=== PATIENT | male | born 1955 | race American Indian/Alaskan Native ===

== ENCOUNTER 2017-07-06 07:11 | Inpatient (IN) | payer BC, OTHER ==
[2017-07-06 08:21] LABS: Basophils % (Auto) 0.8 % (0.0-1.8); Hemoglobin 14.8 gm/dl (11.8-15.2); Mean Corpuscular HGB Conc 34 % (32-34); Mean Corpuscular Hemoglobin 30 pg (28-32); Mean Corpuscular Volume 89 fl (84-94); Platelet Count 109 K/mm3 (140-440); Red Blood Count 4.96 M/mm3 (3.65-5.03); Red Cell Distribution Width 13.1 % (13.2-15.2); White Blood Count 6.1 K/mm3 (4.5-11.0)
[2017-07-06 08:31] LABS: Bilirubin,Urine NEG (Negative); Blood,Urine NEG (Negative); Ketones,Urine NEG (Negative); Leukocyte Esterase,Urine NEG (Negative); Nitrite,Urine NEG (Negative); Protein,Urine <15 mg/dL mg/dL (Negative); RBC,Urine < 1.0 /HPF (0.0-6.0); Urobilinogen,Urine < 2.0 mg/dL (<2.0)
[2017-07-06 08:38] LABS: WBC,Urine < 1.0 /HPF (0.0-6.0)
[2017-07-06 08:42] LABS: Anion Gap 19 mmol/L; BUN/Creatinine Ratio 8; Blood Urea Nitrogen 6 mg/dL (9-20); Calcium 9.1 mg/dL (8.4-10.2); Carbon Dioxide 27 mmol/L (22-30); Glucose 88 mg/dL (75-100); Potassium 4.6 mmol/L (3.6-5.0); Sodium 142 mmol/L (137-145)
--- NOTE | 2017-07-06 10:29 | Emergency Department Report ---
ED Chest Pain HPI - General Chief Complaint: Chest Pain Stated Complaint: CHEST PAIN/NUMBNESS LEFT ARM Time Seen by Provider: 07/06/17 10:27 Source: patient Mode of arrival: Ambulatory Limitations: No Limitations - History of Present Illness Initial Comments: The patient states that at approximately 5 in the morning he began to experience heaviness in his left chest. This was associated with numbness in his left arm. He associated this with taking probiotics and potassium which he took about an hour prior hours. He stated he had some cramps in his legs which were common for him. He is not complaining of any leg pain now. He denies shortness of breath. He's had no recent traveling. There is been no leg swelling. He states he has not been coughing suffering from nausea or vomiting. He had some sweating earlier this morning. Patient is a current smoker. He states that both his parents had "coronaries". He's had no prior workup for chest pain. MD Complaint: chest pain -: hour(s) Onset: during rest Pain Location: left chest Pain Radiation: LUE (left arm numbness) Severity: moderate Quality: heaviness Consistency: now resolved (minimally residual) Improves With: nothing Worsens With: nothing re: other (some sweating). denies: nausea, vomting, dyspnea, sense of impending doom Other Symptoms: denies: cough, fever, syncope Treatments Prior to Arrival: none Aspirin use within the Past 7 Days: (0) No - Related Data Home Medications Medication Instructions Recorded Confirmed Last Taken Krill Oil 500 mg PO DAILY 02/06/14 02/16/14 02/02/14 Lactobacillus Acidophilus 1 each PO DAILY 02/06/14 02/16/14 02/15/14 [Probiotic] Multivitamin [Multi Vitamin Daily] 1 each PO DAILY 02/06/14 02/16/14 02/14/14 Previous Rx's Medication Instructions Recorded Last Taken Type oxyCODONE /ACETAMINOPHEN [Percocet 1 tab PO Q6HR PRN #30 tablet 02/16/14 Unknown Rx 5/325] Allergies Allergy/AdvReac Type Severity Reaction Status Date / Time No Known Allergies Allergy Unverified 02/06/14 15:49 Heart Score - HEART Score History: Slightly suspicious EKG: Normal Age: 45-65 Risk factors: > 3 risk factors or hx of atherosclerotic disease Troponin: < normal limit HEART Score: 3 ED Review of Systems ROS: Stated complaint: CHEST PAIN/NUMBNESS LEFT ARM Other details as noted in HPI Constitutional: denies: chills, fever Eyes: denies: eye pain, eye discharge, vision change ENT: denies: ear pain, throat pain Respiratory: denies: cough, shortness of breath, wheezing Cardiovascular: chest pain. denies: palpitations Endocrine: no symptoms reported Gastrointestinal: denies: abdominal pain, nausea, diarrhea Genitourinary: denies: urgency, dysuria Musculoskeletal: denies: back pain, joint swelling, arthralgia Skin: denies: rash, lesions Neurological: denies: headache, weakness, paresthesias Psychiatric: denies: anxiety, depression Hematological/Lymphatic: denies: easy bleeding, easy bruising ED Past Medical Hx - Past Medical History Hx Hypertension: No Hx Heart Attack/AMI: No Hx Liver Disease: No Hx Renal Disease: No Hx Seizures: No Hx Asthma: No - Surgical History Past Surgical History?: No - Social History Smoking Status: Former Smoker Substance Use Type: None - Medications Home Medications: Home Medications Medication Instructions Recorded Confirmed Last Taken Type Krill Oil 500 mg PO DAILY 02/06/14 02/16/14 02/02/14 History Lactobacillus Acidophilus 1 each PO DAILY 02/06/14 02/16/14 02/15/14 History [Probiotic] Multivitamin [Multi Vitamin Daily] 1 each PO DAILY 02/06/14 02/16/14 02/14/14 History oxyCODONE /ACETAMINOPHEN [Percocet 1 tab PO Q6HR PRN #30 tablet 02/16/14 Unknown Rx 5/325] ED Physical Exam - General Limitations: No Limitations General appearance: alert, in no apparent distress - Head Head exam: Present: atraumatic, normocephalic - Eye Eye exam: Present: normal appearance. Absent: scleral icterus - ENT ENT exam: Present: mucous membranes moist - Neck Neck exam: Present: normal inspection - Respiratory Respiratory exam: Present: normal lung sounds bilaterally. Absent: respiratory distress - Cardiovascular Cardiovascular Exam: Present: regular rate, normal rhythm. Absent: systolic murmur, diastolic murmur, rubs, gallop - GI/Abdominal GI/Abdominal exam: Present: soft, normal bowel sounds. Absent: distended, tenderness, guarding, rebound, rigid - Rectal Rectal exam: Present: deferred - Extremities Exam Extremities exam: Present: normal inspection - Back Exam Back exam: Present: normal inspection - Neurological Exam Neurological exam: Present: alert, oriented X3, CN II-XII intact. Absent: motor sensory deficit - Psychiatric Psychiatric exam: Present: normal affect, normal mood - Skin Skin exam: Present: warm, dry, intact, normal color. Absent: rash ED Course Vital Signs 07/06/17 07/06/17 07/06/17 07:27 08:45 09:00 Temperature 98.4 F Pulse Rate 71 58 L 58 L Respiratory 20 15 11 L Rate Blood Pressure 156/95 146/89 O2 Sat by Pulse 100 100 Oximetry 07/06/17 10:03 Temperature Pulse Rate Respiratory Rate Blood Pressure 141/89 O2 Sat by Pulse 100 Oximetry - Reevaluation(s) Reevaluation #1: Patient was educated as to the need to complete his chest pain workup to exclude cardiac causes of his chest pain. He was initially reticent. Finally he agreed that he would stay to be admitted. His care was transferred to hospitalist on-call. 07/06/17 12:51 TANIA score - Tania Score Age > 65: (0) No Aspirin use within the Past 7 Days: (0) No 3 or more CAD Risk Factors: (1) Yes 2 or more Angina events in past 24 hrs: (0) No Known CAD with more than 50% Stenosis: (0) No Elevated Cardiac Markers: (0) No ST Deviation Greater than 0.5mm: (0) No TANIA Score: 1 ED Medical Decision Making - Lab Data Result diagrams: 07/06/17 08:09 07/06/17 08:05 Laboratory Results - last 24 hr 07/06/17 07/06/17 07/06/17 07:47 08:05 08:09 WBC 6.1 RBC 4.96 Hgb 14.8 Hct 44.0 MCV 89 MCH 30 MCHC 34 RDW 13.1 L Plt Count 109 L Lymph % (Auto) 34.3 [place] % (Auto) 11.4 H Eos % (Auto) 1.0 Baso % (Auto) 0.8 Lymph # 2.1 [place] # 0.7 Eos # 0.1 Baso # 0.0 Seg Neutrophils % 52.5 Seg Neutrophils # 3.2 Sodium 142 Potassium 4.6 Chloride 101.0 Carbon Dioxide 27 Anion Gap 19 BUN 6 L Creatinine 0.8 Estimated GFR > 60 BUN/Creatinine Ratio 8 Glucose 88 Calcium 9.1 Troponin T < 0.010 Urine Color Straw Urine Turbidity Clear Urine pH 7.0 Ur Specific [place] 1.001 L Urine Protein <15 mg/dl Urine Glucose (UA) Neg Urine Ketones Neg Urine Blood Neg Urine Nitrite Neg Urine Bilirubin Neg Urine Urobilinogen < 2.0 Ur Leukocyte Esterase Neg Urine WBC (Auto) < 1.0 Urine RBC (Auto) < 1.0 - EKG Data -: EKG Interpreted by Me EKG shows normal: sinus rhythm, axis, intervals, QRS complexes, ST-T waves Rate: normal - EKG Data When compared to previous EKG there are: no significant change Right bundle-branch block 07/06/17 10:29 - Radiology Data interpreted by me: Chest x-ray has some chronic changes but nothing acute Critical care attestation.: If time is entered above; I have spent that time in minutes in the direct care of this critically ill patient, excluding procedure time. ED Disposition Clinical Impression: Chest pain Qualifiers: Chest pain type: unspecified Qualified Code(s): R07.9 - Chest pain, unspecified Disposition: 09 OP ADMIT IP TO THIS HOSP Is pt being admited?: Yes Does the pt Need Aspirin: Yes Condition: Stable Instructions: Chest Pain (ED) Referrals: PRIMARY CARE, [Primary Care Provider] - 3-5 Days Time of Disposition: 13:14
[2017-07-06] MEDS ORDERED: SODIUM CHLORIDE FLUSH SYRINGE 10 ML IV PRN (13:10)
--- NOTE | 2017-07-06 13:17 | History and Physical Report ---
History of Present Illness Date of examination: 07/06/17 Chief complaint: Chest heaviness History of present illness: 61 year old -Thai male with no significant past medical history of present is emergency Department with complaints of mid chest heaviness that started this morning. He says heaviness is 7 out of 10, associated with palpitation and left arm numbness. Patient didn't have any similar complaints before. Patient said both his father and mother has history of heart attack. She didn't have any cardiac workup before. REVIEW OF SYSTEMS: GENERAL: no weight change, no fatigue, no fever HEAD: no head ache EYES: no blurry vision, no acute visual loss EARS: no hearing loss, no discharge, no earache NOSE: no stuffiness, no sneezing, no discharge MOUTH, THROAT AND NECK: no bleeding gums, no sore throat, no swollen neck CARDIAC: no palpitations, no dyspnea on exertion, no orthopnea, no PND, no edema , no chest pain RESPIRATORY: no shortness of breath, no wheeze, no cough, no sputum, no hemoptysis, no asthma GI: no decreased appetite, no nausea, no vomiting, no dysphagia, no diarrhea, no constipation, no abdominal pain URINARY: no change in frequency, no urgency, no polyuria, no hematuria, no incontinence MUSCULOSKELETAL: no muscle weakness, no pain, no joint stiffness NEUROLOGIC: no loss of sensation/numbness, no tingling, no tremors, no weakness/ paralysis HEMATOLOGIC: no anemia, no easy bruising SKIN: no rashes ENDOCRINE: no heat/cold intolerance, no polyuria, no polydipsia, no thyroid problems, no diabetes PSYCHIATRIC: no anxiety, no depression, no suicidal ideations Past History Past Medical History: No medical history Past Surgical History: hernia repair Social history: full code. denies: smoking, alcohol abuse, prescription drug abuse, IV drug use Family history: CAD (both mother and father), cancer (Brother and sister) Medications and Allergies Allergies Allergy/AdvReac Type Severity Reaction Status Date / Time No Known Allergies Allergy Unverified 02/06/14 15:49 Home Medications Medication Instructions Recorded Confirmed Last Taken Type Krill Oil 500 mg PO DAILY 02/06/14 02/16/14 02/02/14 History Lactobacillus Acidophilus 1 each PO DAILY 02/06/14 02/16/14 02/15/14 History [Probiotic] Multivitamin [Multi Vitamin Daily] 1 each PO DAILY 02/06/14 02/16/14 02/14/14 History oxyCODONE /ACETAMINOPHEN [Percocet 1 tab PO Q6HR PRN #30 tablet 02/16/14 Unknown Rx 5/325] Active Meds: Active Medications Aspirin (Baby Aspirin) 81 mg PO QDAY LARY Atorvastatin Calcium (Lipitor) 40 mg PO QHS LARY Enoxaparin Sodium (Lovenox) 40 mg SUB-Q QDAY LARY Sodium Chloride (Sodium Chloride Flush Syringe 10 Ml) 10 ml IV PRN PRN PRN Reason: LINE FLUSH Exam - Physical Exam Narrative exam: Not in cardiopulmonary distress. The patient appeared well nourished and normally developed. Vital signs as documented. Head exam is unremarkable. No scleral icterus . Neck is without jugular venous distension, thyromegaly, or carotid bruits. Lungs are clear to auscultation. Cardiac exam reveals regular rate and Rhythm. First and second heart sounds normal. No murmurs, rubs or gallops. Abdominal exam reveals normal bowel sounds, no masses, no organomegaly and no aortic enlargement. Extremities are nonedematous and both femoral and pedal pulses are normal. [employer] POWERPLANT [employer]IC: Alert and oriented 3. No focal weakness. - Constitutional Vitals: Temp Pulse Resp BP Pulse Ox 98.4 F 58 L 11 L 141/89 100 07/06/17 07:27 07/06/17 09:00 07/06/17 09:00 07/06/17 10:03 07/06/17 10:03 Results - Labs CBC & Chem 7: 07/06/17 08:09 07/06/17 08:05 Labs: Laboratory Last Values WBC 6.1 K/mm3 (4.5-11.0) 07/06/17 08:09 RBC 4.96 M/mm3 (3.65-5.03) 07/06/17 08:09 Hgb 14.8 gm/dl (11.8-15.2) 07/06/17 08:09 Hct 44.0 % (35.5-45.6) 07/06/17 08:09 MCV 89 fl (84-94) 07/06/17 08:09 MCH 30 pg (28-32) 07/06/17 08:09 MCHC 34 % (32-34) 07/06/17 08:09 RDW 13.1 % (13.2-15.2) L 07/06/17 08:09 Plt Count 109 K/mm3 (140-440) L 07/06/17 08:09 Lymph % (Auto) 34.3 % (13.4-35.0) 07/06/17 08:09 [place] % (Auto) 11.4 % (0.0-7.3) H 07/06/17 08:09 Eos % (Auto) 1.0 % (0.0-4.3) 07/06/17 08:09 Baso % (Auto) 0.8 % (0.0-1.8) 07/06/17 08:09 Lymph # 2.1 K/mm3 (1.2-5.4) 07/06/17 08:09 [place] # 0.7 K/mm3 (0.0-0.8) 07/06/17 08:09 Eos # 0.1 K/mm3 (0.0-0.4) 07/06/17 08:09 Baso # 0.0 K/mm3 (0.0-0.1) 07/06/17 08:09 Seg Neutrophils % 52.5 % (40.0-70.0) 07/06/17 08:09 Seg Neutrophils # 3.2 K/mm3 (1.8-7.7) 07/06/17 08:09 Sodium 142 mmol/L (137-145) 07/06/17 08:05 Potassium 4.6 mmol/L (3.6-5.0) 07/06/17 08:05 Chloride 101.0 mmol/L (98-107) 07/06/17 08:05 Carbon Dioxide 27 mmol/L (22-30) 07/06/17 08:05 Anion Gap 19 mmol/L 07/06/17 08:05 BUN 6 mg/dL (9-20) L 07/06/17 08:05 Creatinine 0.8 mg/dL (0.8-1.5) 07/06/17 08:05 Estimated GFR > 60 ml/min 07/06/17 08:05 BUN/Creatinine Ratio 8 % 07/06/17 08:05 Glucose 88 mg/dL (75-100) 07/06/17 08:05 Calcium 9.1 mg/dL (8.4-10.2) 07/06/17 08:05 Troponin T < 0.010 ng/mL (0.00-0.029) 07/06/17 10:37 Urine Color Straw (Yellow) 07/06/17 07:47 Urine Turbidity Clear (Clear) 07/06/17 07:47 Urine pH 7.0 (5.0-7.0) 07/06/17 07:47 Ur Specific [place] 1.001 (1.003-1.030) L 07/06/17 07:47 Urine Protein <15 mg/dl mg/dL (Negative) 07/06/17 07:47 Urine Glucose (UA) Neg mg/dL (Negative) 07/06/17 07:47 Urine Ketones Neg mg/dL (Negative) 07/06/17 07:47 Urine Blood Neg (Negative) 07/06/17 07:47 Urine Nitrite Neg (Negative) 07/06/17 07:47 Urine Bilirubin Neg (Negative) 07/06/17 07:47 Urine Urobilinogen < 2.0 mg/dL (<2.0) 07/06/17 07:47 Ur Leukocyte Esterase Neg (Negative) 07/06/17 07:47 Urine WBC (Auto) < 1.0 /HPF (0.0-6.0) 07/06/17 07:47 Urine RBC (Auto) < 1.0 /HPF (0.0-6.0) 07/06/17 07:47 - Imaging and Cardiology EKG: image reviewed (NSR) Assessment and Plan Assessment and plan: 61 -[place] with no significant past medical history presented to the emergency department for complaints of chest heaviness that started this morning Chest pain - Cardiac events are negative, EKG normal sinus rhythm - We will do serial cardiac enzymes and EKG - We will have cardiac stress test tomorrow morning DVT prophylaxis - Lovenox Disposition - Admit to telemetry floor. Advance Directives: Yes VTE prophylaxis?: Chemical Plan of care discussed with patient/family: Yes
--- NOTE | 2017-07-06 13:51 | XRay Report ---
AP CHEST: HISTORY: chest pain AP view of the chest demonstrates a normal mediastinal and cardiac contour with clear lungs and normal bony and soft tissue structures. IMPRESSION: No acute cardiopulmonary process.
[2017-07-06 14:19] LABS: Anion Gap 19 mmol/L; BUN/Creatinine Ratio 9; Blood Urea Nitrogen 6 mg/dL (9-20); Calcium 9.2 mg/dL (8.4-10.2); Carbon Dioxide 26 mmol/L (22-30); Chloride 102.3 mmol/L (98-107); Glucose 89 mg/dL (75-100); Potassium 4.6 mmol/L (3.6-5.0); Sodium 143 mmol/L (137-145)
[2017-07-06 15:04] LABS: Eosinophils % (Auto) 0.7 % (0.0-4.3); Hemoglobin 15.1 gm/dl (11.8-15.2); Mean Corpuscular HGB Conc 33 % (32-34); Mean Corpuscular Hemoglobin 30 pg (28-32); Mean Corpuscular Volume 89 fl (84-94); Platelet Count 115 K/mm3 (140-440); Red Blood Count 5.06 M/mm3 (3.65-5.03); Red Cell Distribution Width 13.1 % (13.2-15.2); White Blood Count 6.3 K/mm3 (4.5-11.0)
[2017-07-06 15:05] LABS: Basophils % (Auto) 1.2 % (0.0-1.8)
[2017-07-07 04:41] VITALS: BP 144/85
[2017-07-07 06:31] LABS: Anion Gap 18 mmol/L; BUN/Creatinine Ratio 11; Blood Urea Nitrogen 9 mg/dL (9-20); Calcium 8.7 mg/dL (8.4-10.2); Carbon Dioxide 26 mmol/L (22-30); Chloride 105.5 mmol/L (98-107); Glucose 101 mg/dL (75-100); Potassium 4.1 mmol/L (3.6-5.0); Sodium 145 mmol/L (137-145)
[2017-07-07] MEDS ORDERED: BABY ASPIRIN PO SCH (10:00)
[2017-07-07] MEDS ORDERED: LOVENOX SUB-Q SCH (10:00)
--- NOTE | 2017-07-07 15:42 | Discharge Summary ---
Providers - Providers Date of Admission: 07/06/17 13:13 Date of discharge: 07/07/17 Attending physician: VIJAY DUONG MD 07/06/17 Consult to Cardiac Rehabilitation [CONS] Routine Reason For Exam: Phase I Primary care physician: [facility] Hospitalization Reason for admission: Chest pain Condition: Stable Pertinent studies: Cardiac stress test; negative for acute ischemia Hospital course: 61 year old -Congolese male with no significant past medical history of present is emergency Department with complaints of mid chest heaviness that started this morning. He says heaviness is 7 out of 10, associated with palpitation and left arm numbness. Patient didn't have any similar complaints before. Patient said both his father and mother has history of heart attack. He didn't have any cardiac workup before. Cardiac enzymes were negative, EKG normal sinus rhythm, cardiac stress test was negative. Patient didn't have any chest pain or pressure after admission. Patient is hemodynamically stable and discharged home with advice to follow up with his primary care physician. Patient's concerns and questions were addressed at the bedside. Disposition: DC-30 STILL A PATIENT Time spent for discharge: 31 minutes - Discharge Diagnoses (1) Chest pain Status: Acute Qualifiers: Chest pain type: unspecified Qualified Code(s): R07.9 - Chest pain, unspecified (2) Costochondritis Status: Acute Core Measure Documentation - Palliative Care Palliative Care/ Comfort Measures: Not Applicable - Core Measures Any of the following diagnoses?: none Exam - Physical Exam Narrative exam: Not in cardiopulmonary distress. The patient appeared well nourished and normally developed. Vital signs as documented. Head exam is unremarkable. No scleral icterus . Neck is without jugular venous distension, thyromegaly, or carotid bruits. Lungs are clear to auscultation. Cardiac exam reveals regular rate and Rhythm. First and second heart sounds normal. No murmurs, rubs or gallops. Abdominal exam reveals normal bowel sounds, no masses, no organomegaly and no aortic enlargement. Extremities are nonedematous and both femoral and pedal pulses are normal. [employer]PERATION: Alert and oriented 3. No focal weakness. - Constitutional Vitals: Temp Pulse Resp BP Pulse Ox 97.6 F 59 L 20 144/85 97 07/07/17 04:24 07/07/17 12:00 07/07/17 04:24 07/07/17 04:24 07/07/17 04:26 Plan Activity: no restrictions Weight Bearing Status: Full Weight Bearing Diet: low cholesterol Follow up with: PRIMARY CARE, [Primary Care Provider] - 3-5 Days Forms: Work/School Release Form
--- NOTE | 2017-07-08 06:26 | Treadmill Report ---
THALLIUM STRESS TEST LEFT VENTRICLE: Left ventricular chamber size is within normal spread. Perfusion study demonstrates homogeneous uptake of the tracer in all segments, no significant perfusion defects identified. Gated analysis demonstrates normal left ventricular systolic function, ejection fraction 72%. CONCLUSION: Normal myocardial perfusion study. JOB# [id number] CA/NTS
== END 2017-07-07 17:13 | disposition home or self-care (01) | DRG 206 ==
LOC: ED 07:11 → 4A 13:13
PROVIDERS: ADMIT Internal Medicine; ATTEND Internal Medicine
DX: M94.0 Chondrocostal junction syndrome [Tietze] (principal); R07.89 Other chest pain; F17.200 Nicotine dependence, unspecified, uncomplicated; Z82.49 Family history of ischemic heart disease and other diseases of the circulatory system; Z79.899 Other long term (current) drug therapy; Z80.9 Family history of malignant neoplasm, unspecified
CPT/HCPCS: 36415; 71010; 78452; 80048; 81001; 84484; 85025; 93005; 93010; 93017; A9270-GY; A9502